=== PATIENT | male | born 1955 | race Caucasian/White ===

== ENCOUNTER 2024-05-29 06:43 | Day surgery (SDC) | payer OTHER ==
[~2024-05-29] VITALS: Ht 185.4 cm; Wt 97.7 kg
[~2024-05-29 06:43] MED LIST: Balanced Salt Epinephrine Irrigation Solution 500 mL IR SCH; Lidocaine HCl/Pf 1% 5 ML VIAL XX SCH; Moxifloxacin HCL 0.5 MG/0.1 ML 0.4MLSYR LEFTEYE SCH; NS 500 ML IV ONE; PHENYLEPHRINE\\TROPICAMIDE\\TETRACAINE OPHTHALMIC DILATING SOLN LEFTEYE PRN; Povidone-Iodine 450 DROP/30 ML Solution LEFTEYE SCH; Triamcinolone Inj Susp 40 MG / ML 1ML Vial INJ SCH
[2024-05-29] MEDS ORDERED: NS 500 ML IV ONE (06:55)
[2024-05-29] MEDS ORDERED: MELO7.5 PO (06:57)
[2024-05-29] MEDS ORDERED: ELIQUIS5 M3 PO (06:57)
[2024-05-29] MEDS ORDERED: ATORVASTATIN CA20 MG PO (06:58)
[2024-05-29] MEDS ORDERED: SOTALOL8011 PO (06:58)
[2024-05-29] MEDS ORDERED: HYDROCODONE-AC1 EA19 PO (06:58)
[2024-05-29] MEDS ORDERED: Pepcid40 MG PO (06:59)
[2024-05-29] MEDS ORDERED: TADA10TA (06:59)
[2024-05-29] MEDS ORDERED: Vitamin D2000 UNIT PO (07:00)
[2024-05-29] MEDS ORDERED: VITAMIN B121000 MCG PO (07:00)
[2024-05-29] MEDS ORDERED: VITAMIN B1250 MG PO (07:01)
[2024-05-29] MEDS ORDERED: Triamcinolone Inj Susp 40 MG / ML 1ML Vial ONE (07:22)
[2024-05-29] MEDS ORDERED: Lidocaine HCl/Pf 1% 5 ML VIAL ONE (07:25)
[2024-05-29] MEDS ORDERED: Midazolam HCl 1MG / ML 2ML Vial ONE (07:26)
[2024-05-29] MEDS ORDERED: FentaNYL Citrate 50 MCG/ML 2 ML Injection ONE (07:26)
[2024-05-29] MEDS ORDERED: Tetracaine HCl 0.5% Opth Soln 15 ml LEFTEYE ONE (08:06)
[2024-05-29 08:27] VITALS: BP 111/88
== END 2024-05-29 08:48 | disposition home or self-care (01) ==
LOC: ORSCSDS 06:43
PROVIDERS: Ophthalmology
PROC: 08RK3JZ Replacement of Left Lens with Synthetic Substitute, Percutaneous Approach (ICD-10-PCS; principal; 2024-05-29 08:00)
DX: E11.36 Type 2 diabetes mellitus with diabetic cataract (principal); H25.813 Combined forms of age-related cataract, bilateral; I48.91 Unspecified atrial fibrillation; K21.9 Gastro-esophageal reflux disease without esophagitis; Z95.0 Presence of cardiac pacemaker; Z79.01 Long term (current) use of anticoagulants; Z79.899 Other long term (current) drug therapy
CPT/HCPCS: 82947; J2001; J2250; J3010; J3301; J7040; V2632

== ENCOUNTER 2024-11-08 22:24 | Emergency (ER) | payer OTHER ==
[~2024-11-08] VITALS: Ht 185.4 cm; Wt 93.0 kg
[~2024-11-08 22:24] MED LIST changes: +ATORVASTATIN CA20 MG PO; -Balanced Salt Epinephrine Irrigation Solution 500 mL IR SCH; +ELIQUIS5 M3 PO; +HYDROCODONE-AC1 EA19 PO; -Lidocaine HCl/Pf 1% 5 ML VIAL XX SCH; +MELO7.5 PO; -Moxifloxacin HCL 0.5 MG/0.1 ML 0.4MLSYR LEFTEYE SCH; -NS 500 ML IV ONE; -PHENYLEPHRINE\\TROPICAMIDE\\TETRACAINE OPHTHALMIC DILATING SOLN LEFTEYE PRN; +Pepcid40 MG PO; -Povidone-Iodine 450 DROP/30 ML Solution LEFTEYE SCH; +SOTALOL8011 PO; +TADA10TA PO; -Triamcinolone Inj Susp 40 MG / ML 1ML Vial INJ SCH; +VITAMIN B121000 MCG PO; +VITAMIN B1250 MG PO; +Vitamin D2000 UNIT PO
[2024-11-08 22:50] LABS: BASOPHILS ABSOLUTE AUTO 0.05 K/mm3 (0.00-0.23); BASOPHILS PERCENT AUTO 1 % (0-2); EOSINOPHILS ABSOLUTE AUTO 0.08 K/mm3 (0.00-0.68); EOSINOPHILS PERCENT AUTO 1 % (0-6); Hematocrit 45.9 % (37.0-53.0); Hemoglobin 15.2 g/dL (13.5-17.5); IMMATURE GRAN ABSOLUTE AUTO 0.01 K/mm3 (0.00-0.10); IMMATURE GRAN PERCENT AUTO 0 % (0-1); LYMPHOCYTES ABSOLUTE AUTO 2.66 K/mm3 (0.84-5.20); LYMPHOCYTES PERCENT AUTO 38 % (21-46); MONOCYTES ABSOLUTE AUTO 0.62 K/mm3 (0.16-1.47); MONOCYTES PERCENT AUTO 9 % (4-13); Mean Corpuscular HGB 30.6 pg (26.0-34.0); Mean Corpuscular HGB Conc 33.1 g/dL (31.5-36.5); Mean Corpuscular Volume 93 fL (80-100); Mean Platelet Volume 10.8 fL (9.1-12.4); NEUTROPHILS ABSOLUTE AUTO 3.67 K/mm3 (1.96-9.15); NEUTROPHILS PERCENT AUTO 52 % (41-73); Platelet Count 167 K/mm3 (150-400); RDW Coefficient Variation 12.9 % (11.7-14.2); Red Blood Cell Count 4.96 M/mm3 (4.30-5.90); White Blood Cell Count 7.09 K/mm3 (4.00-11.30)
[2024-11-08 23:05] LABS: International Normalized Ratio 1.06; Prothrombin Time Results 11.3 Sec (9.7-11.5)
[2024-11-08 23:11] LABS: Albumin, Blood 3.3 g/dL (3.4-5.0); Bilirubin, Total 0.3 mg/dL (0.1-1.0); Creatinine, Blood 0.7 mg/dL (0.60-1.20); Globulin, Blood 3.4 g/dL (2.2-4.0); Magnesium, Blood 2.1 mg/dL (1.6-2.4); Potassium, Blood 3.8 mmol/L (3.5-5.5); Total Protein, Blood 6.7 g/dL (6.4-8.2)
[2024-11-08] MEDS ORDERED: Digoxin 0.25 MG/ML 2ML Amp IV ONE (23:15)
[2024-11-08] MEDS ORDERED: Metoprolol Tartrate 1 MG/ML 5 ML VIAL IV PRN (23:20)
[2024-11-09] MEDS ORDERED: Diltiazem HCl 5 MG / ML 5ML Vial IV ONE (00:45)
[2024-11-09 01:00] VITALS: BP 104/88
[2024-11-10] MEDS ORDERED: AREDS EYE VITAMINS (11:18)
== END 2024-11-09 01:45 | disposition home or self-care (01) ==
LOC: ER 22:24
PROVIDERS: Emergency Medicine
DX: I48.92 Unspecified atrial flutter (principal); Z79.899 Other long term (current) drug therapy; Z88.5 Allergy status to narcotic agent
CPT/HCPCS: 71046; 80053; 83735; 83880; 84484; 85025; 85610; 93005; 93010; 96374; 96375; 99285-25; J1160

== ENCOUNTER 2024-11-09 23:00 | Inpatient (IN) | payer OTHER ==
[~2024-11-09] VITALS: Ht 185.4 cm; Wt 94.4 kg
[2024-11-09 23:44] LABS: BASOPHILS ABSOLUTE AUTO 0.05 K/mm3 (0.00-0.23); BASOPHILS PERCENT AUTO 1 % (0-2); EOSINOPHILS ABSOLUTE AUTO 0.08 K/mm3 (0.00-0.68); EOSINOPHILS PERCENT AUTO 1 % (0-6); Hematocrit 45.2 % (37.0-53.0); Hemoglobin 14.9 g/dL (13.5-17.5); IMMATURE GRAN ABSOLUTE AUTO 0.02 K/mm3 (0.00-0.10); IMMATURE GRAN PERCENT AUTO 0 % (0-1); LYMPHOCYTES ABSOLUTE AUTO 2.22 K/mm3 (0.84-5.20); LYMPHOCYTES PERCENT AUTO 28 % (21-46); MONOCYTES PERCENT AUTO 9 % (4-13); Mean Corpuscular HGB 30.5 pg (26.0-34.0); Mean Corpuscular Volume 93 fL (80-100); Mean Platelet Volume 10.5 fL (9.1-12.4); NEUTROPHILS ABSOLUTE AUTO 4.78 K/mm3 (1.96-9.15); NEUTROPHILS PERCENT AUTO 61 % (41-73); Platelet Count 148 K/mm3 (150-400); RDW Coefficient Variation 12.8 % (11.7-14.2); RDW Standard Deviation 43.7 fL (35.1-46.3); Red Blood Cell Count 4.88 M/mm3 (4.30-5.90); White Blood Cell Count 7.85 K/mm3 (4.00-11.30)
[2024-11-10 00:03] LABS: Albumin, Blood 3.2 g/dL (3.4-5.0); Albumin/Globulin Ratio 0.9 (0.8-1.8); Bilirubin, Total 0.5 mg/dL (0.1-1.0); Bun/Creatinine Ratio 24.7 (12.0-20.0); Calcium, Blood 9.1 mg/dL (8.5-10.1); Creatinine, Blood 0.69 mg/dL (0.60-1.20); Globulin, Blood 3.4 g/dL (2.2-4.0); Potassium, Blood 4.1 mmol/L (3.5-5.5); Total Protein, Blood 6.6 g/dL (6.4-8.2)
[2024-11-10] MEDS ORDERED: Metoprolol Tartrate 1 MG/ML 5 ML VIAL IV ONE ×2 (03:15→04:30)
[2024-11-10] MEDS ORDERED: NS 1,000 ML IV SCH (04:30)
[2024-11-10] MEDS ORDERED: Diltiazem HCl 5 MG / ML 5ML Vial IV ONE (05:00)
[2024-11-10] MEDS ORDERED: NS 1,000 ML IV ONE (05:50)
[2024-11-10] MEDS ORDERED: Ondansetron HCl 2 MG / ML 2ML Vial IV PRN (05:50)
[2024-11-10] MEDS ORDERED: FLU VACC TS2024-25(6MOS UP)/PF 45 MCG/0.5 ML SYRINGE IM ONE (05:50)
[2024-11-10 06:59] LABS: Source, Urine Clean Catch
[2024-11-10 07:01] LABS: Bilirubin, Urine Neg (Neg); Blood, Urine 1+ (Neg); Glucose Qualitative, Urine Neg (Neg); Ketones, Urine Neg (Neg); Leukocyte Esterase, Urine Neg (Neg); Nitrite, Urine Neg (Neg); Protein, Urine Neg (Neg); Specific Gravity, Urine 1.015 (1.003-1.022); Urobilinogen, Urine NORM (Normal)
[2024-11-10 07:22] LABS: Appearance, Urine Clear (Clear); Color, Urine Yellow (P-Yellow)
[2024-11-10 07:24] LABS: White Blood Cells, Urine 0-2 /hpf (0-5)
[2024-11-10 07:25] LABS: Bacteria Rare /hpf; Squamous Epithelial Cells Rare /hpf (Few)
[2024-11-10] MEDS ORDERED: Enoxaparin 40 MG/0.4 ML SYR SC SCH (09:00)
[2024-11-10] MEDS ORDERED: AREDS EYE VITAMINS (11:18)
[2024-11-10 13:35] LABS: Free Thyroxine 0.94 ng/dL (0.70-1.60)
[2024-11-10 13:37] LABS: Thyroid Stimulating Hormone 1.6 uIU/mL (0.360-4.800)
[2024-11-10] MEDS ORDERED: Metoprolol Tartrate 1 MG/ML 5 ML VIAL IV PRN (16:10)
[2024-11-10 16:54] VITALS: BP 100/89
[2024-11-10 19:35] VITALS: BP 116/85
[2024-11-10 20:57] VITALS: BP 101/61
[2024-11-10 22:45] VITALS: BP 133/114
[2024-11-10 23:30] VITALS: BP 117/94
[2024-11-10] MEDS ORDERED: Acetaminophen 325 MG TABLET PO PRN (23:45)
[2024-11-11] VITALS (14 sets, daily range): BP systolic 101–129; BP diastolic 74–104
[2024-11-11 04:01] LABS: BASOPHILS ABSOLUTE AUTO 0.05 K/mm3 (0.00-0.23); BASOPHILS PERCENT AUTO 1 % (0-2); EOSINOPHILS ABSOLUTE AUTO 0.08 K/mm3 (0.00-0.68); EOSINOPHILS PERCENT AUTO 1 % (0-6); Hematocrit 43.2 % (37.0-53.0); Hemoglobin 14.6 g/dL (13.5-17.5); IMMATURE GRAN ABSOLUTE AUTO 0.02 K/mm3 (0.00-0.10); IMMATURE GRAN PERCENT AUTO 0 % (0-1); LYMPHOCYTES ABSOLUTE AUTO 2.01 K/mm3 (0.84-5.20); LYMPHOCYTES PERCENT AUTO 30 % (21-46); MONOCYTES ABSOLUTE AUTO 0.65 K/mm3 (0.16-1.47); MONOCYTES PERCENT AUTO 10 % (4-13); Mean Corpuscular HGB 30.9 pg (26.0-34.0); Mean Corpuscular HGB Conc 33.8 g/dL (31.5-36.5); Mean Corpuscular Volume 91 fL (80-100); Mean Platelet Volume 10.9 fL (9.1-12.4); NEUTROPHILS PERCENT AUTO 59 % (41-73); Platelet Count 141 K/mm3 (150-400); RDW Coefficient Variation 12.9 % (11.7-14.2); RDW Standard Deviation 43.5 fL (35.1-46.3); Red Blood Cell Count 4.73 M/mm3 (4.30-5.90); White Blood Cell Count 6.81 K/mm3 (4.00-11.30)
[2024-11-11 04:25] LABS: Albumin/Globulin Ratio 0.9 (0.8-1.8); Bilirubin, Total 0.6 mg/dL (0.1-1.0); Bun/Creatinine Ratio 18.3 (12.0-20.0); Calcium, Blood 8.9 mg/dL (8.5-10.1); Creatinine, Blood 0.65 mg/dL (0.60-1.20); Globulin, Blood 3.3 g/dL (2.2-4.0); Total Protein, Blood 6.3 g/dL (6.4-8.2)
[2024-11-12] MEDS ORDERED: Hyaluronidase 150 UNIT/ML Vial IV SCH (00:38)
[2024-11-12] MEDS ORDERED: Hyaluronidase 150 UNIT/ML Vial SC SCH (01:00)
[2024-11-12 04:00] VITALS: BP 117/85
[2024-11-12 04:34] LABS: Hematocrit 41.4 % (37.0-53.0); Mean Corpuscular HGB 30.4 pg (26.0-34.0); Mean Corpuscular HGB Conc 33.8 g/dL (31.5-36.5); Mean Corpuscular Volume 90 fL (80-100); Platelet Count 148 K/mm3 (150-400); RDW Coefficient Variation 13.1 % (11.7-14.2); RDW Standard Deviation 42.8 fL (35.1-46.3); White Blood Cell Count 7.27 K/mm3 (4.00-11.30)
[2024-11-12 08:00] VITALS: BP 108/89
[2024-11-12] MEDS ORDERED: Amiodarone HCl 200 MG Tab PO ONE (11:00)
[2024-11-12 12:58] VITALS: BP 114/91
[2024-11-12 16:46] VITALS: BP 117/92
[2024-11-12 20:07] VITALS: BP 129/88
[2024-11-12] MEDS ORDERED: Amiodarone HCl 200 MG Tab PO SCH (21:00)
[2024-11-13] VITALS: BP 106/85
[2024-11-13 03:49] VITALS: BP 103/88
[2024-11-13 08:39] VITALS: BP 110/91
[2024-11-13] MEDS ORDERED: dilTIAZem HCL 30 MG TAB PO SCH (09:30)
[2024-11-13] MEDS ORDERED: dilTIAZem HCL 60 MG TAB PO SCH ×2 (12:00→13:30)
[2024-11-13 12:03] VITALS: BP 113/90
[2024-11-13 16:23] VITALS: BP 123/89
[2024-11-13 21:02] VITALS: BP 117/83
[2024-11-14 00:08] VITALS: BP 102/81
[2024-11-14 04:26] VITALS: BP 106/83
[2024-11-14 04:39] LABS: BASOPHILS ABSOLUTE AUTO 0.04 K/mm3 (0.00-0.23); BASOPHILS PERCENT AUTO 1 % (0-2); EOSINOPHILS ABSOLUTE AUTO 0.07 K/mm3 (0.00-0.68); EOSINOPHILS PERCENT AUTO 1 % (0-6); Hematocrit 43.4 % (37.0-53.0); Hemoglobin 14.7 g/dL (13.5-17.5); IMMATURE GRAN ABSOLUTE AUTO 0.02 K/mm3 (0.00-0.10); IMMATURE GRAN PERCENT AUTO 0 % (0-1); LYMPHOCYTES ABSOLUTE AUTO 1.67 K/mm3 (0.84-5.20); LYMPHOCYTES PERCENT AUTO 25 % (21-46); MONOCYTES ABSOLUTE AUTO 0.64 K/mm3 (0.16-1.47); MONOCYTES PERCENT AUTO 9 % (4-13); Mean Corpuscular HGB 30.8 pg (26.0-34.0); Mean Corpuscular HGB Conc 33.9 g/dL (31.5-36.5); Mean Corpuscular Volume 91 fL (80-100); Mean Platelet Volume 10.7 fL (9.1-12.4); NEUTROPHILS ABSOLUTE AUTO 4.36 K/mm3 (1.96-9.15); NEUTROPHILS PERCENT AUTO 64 % (41-73); Platelet Count 149 K/mm3 (150-400); RDW Coefficient Variation 13.1 % (11.7-14.2); RDW Standard Deviation 43.3 fL (35.1-46.3); Red Blood Cell Count 4.77 M/mm3 (4.30-5.90)
[2024-11-14 04:59] LABS: Magnesium, Blood 1.9 mg/dL (1.6-2.4)
[2024-11-14 05:02] LABS: Albumin, Blood 3.2 g/dL (3.4-5.0); Albumin/Globulin Ratio 0.8 (0.8-1.8); Bilirubin, Total 0.7 mg/dL (0.1-1.0); Bun/Creatinine Ratio 26.7 (12.0-20.0); Calcium, Blood 9.1 mg/dL (8.5-10.1); Creatinine, Blood 0.56 mg/dL (0.60-1.20); Globulin, Blood 3.9 g/dL (2.2-4.0); Phosphorus, Blood 3.2 mg/dL (2.5-4.9); Potassium, Blood 3.8 mmol/L (3.5-5.5); Total Protein, Blood 7.1 g/dL (6.4-8.2)
[2024-11-14 08:31] VITALS: BP 106/85
[2024-11-14] MEDS ORDERED: dilTIAZem HCL 60 MG TAB PO SCH ×2 (09:00)
[2024-11-14 11:39] VITALS: BP 105/82
[2024-11-14 15:56] VITALS: BP 116/81
[2024-11-14 20:11] VITALS: BP 115/83
[2024-11-15] VITALS (11 sets, daily range): BP systolic 107–126; BP diastolic 71–89
[2024-11-15 03:52] LABS: BASOPHILS ABSOLUTE AUTO 0.03 K/mm3 (0.00-0.23); BASOPHILS PERCENT AUTO 1 % (0-2); EOSINOPHILS ABSOLUTE AUTO 0.06 K/mm3 (0.00-0.68); EOSINOPHILS PERCENT AUTO 1 % (0-6); Hematocrit 41.6 % (37.0-53.0); IMMATURE GRAN ABSOLUTE AUTO 0.02 K/mm3 (0.00-0.10); IMMATURE GRAN PERCENT AUTO 0 % (0-1); LYMPHOCYTES ABSOLUTE AUTO 1.51 K/mm3 (0.84-5.20); LYMPHOCYTES PERCENT AUTO 23 % (21-46); MONOCYTES ABSOLUTE AUTO 0.68 K/mm3 (0.16-1.47); MONOCYTES PERCENT AUTO 10 % (4-13); Mean Corpuscular HGB 30.6 pg (26.0-34.0); Mean Corpuscular HGB Conc 33.7 g/dL (31.5-36.5); Mean Corpuscular Volume 91 fL (80-100); Mean Platelet Volume 10.8 fL (9.1-12.4); NEUTROPHILS ABSOLUTE AUTO 4.34 K/mm3 (1.96-9.15); NEUTROPHILS PERCENT AUTO 65 % (41-73); Platelet Count 144 K/mm3 (150-400); RDW Coefficient Variation 13.1 % (11.7-14.2); RDW Standard Deviation 43.3 fL (35.1-46.3); Red Blood Cell Count 4.58 M/mm3 (4.30-5.90); White Blood Cell Count 6.64 K/mm3 (4.00-11.30)
[2024-11-15 04:31] LABS: Albumin, Blood 3.1 g/dL (3.4-5.0); Albumin/Globulin Ratio 0.9 (0.8-1.8); Bilirubin, Total 0.4 mg/dL (0.1-1.0); Bun/Creatinine Ratio 22.6 (12.0-20.0); Calcium, Blood 9.1 mg/dL (8.5-10.1); Creatinine, Blood 0.62 mg/dL (0.60-1.20); Globulin, Blood 3.6 g/dL (2.2-4.0); Potassium, Blood 3.7 mmol/L (3.5-5.5); Total Protein, Blood 6.7 g/dL (6.4-8.2)
[2024-11-15] MEDS ORDERED: propofoL 50 ML IV ONE (08:33)
[2024-11-15] MEDS ORDERED: NS 1,000 ML IV ONE (08:51)
[2024-11-15] MEDS ORDERED: dilTIAZem HCL 30 MG TAB PO ONE (09:00)
[2024-11-15] MEDS ORDERED: dilTIAZem HCL 120 MG CAP.CD PO SCH (12:00)
[2024-11-15] MEDS ORDERED: AMIODARONE HCL400 M2 PO (12:48)
[2024-11-15] MEDS ORDERED: Amiodarone HCl200 MG PO (12:49)
== END 2024-11-15 14:15 | disposition home or self-care (01) | DRG 310 ==
LOC: ER 23:00 → ERHOLD 23:01 → PCU 11-10 16:53
PROVIDERS: Family Medicine; Student in an Organized Health Care Education/Training Program; ADMIT Internal Medicine
PROC: 5A2204Z Restoration of Cardiac Rhythm, Single (ICD-10-PCS; principal; 2024-11-15)
DX: I48.92 Unspecified atrial flutter (principal); D69.6 Thrombocytopenia, unspecified; E88.09 Other disorders of plasma-protein metabolism, not elsewhere classified; I48.91 Unspecified atrial fibrillation; E78.5 Hyperlipidemia, unspecified; K21.9 Gastro-esophageal reflux disease without esophagitis; Z96.651 Presence of right artificial knee joint; Z88.5 Allergy status to narcotic agent; Z79.01 Long term (current) use of anticoagulants; Z79.899 Other long term (current) drug therapy; Z95.0 Presence of cardiac pacemaker; Z90.49 Acquired absence of other specified parts of digestive tract
CPT/HCPCS: 36415; 80053; 81001; 83735; 84100; 84439; 84443; 84484; 85025; 85027; 92960; 93005; 93010; 96361; 96365; 96366; 96372; 96372-59; 96375; 96376; 99285-25; A9270; G0378; J0282; J1650; J2704; J3470; J7030; J7060

== ENCOUNTER → 2024-11-23 | Outpatient (CLI) | payer OTHER ==
[~2024-11-23] MED LIST changes: +AMIODARONE HCL400 M2 PO; +AREDS EYE VITAMINS; +Amiodarone HCl200 MG PO
[2024-11-25 18:53] LABS: Adenovirus F 40/41 Not Detected (NOT DETECT); Astrovirus Not Detected (NOT DETECT); Campylobacter Sp Not Detected (NOT DETECT); Cryptosporidium Not Detected (NOT DETECT); Cyclospora Cayetanensis Not Detected (NOT DETECT); E. Coli O157 Not Detected (NOT DETECT); Entamoeba Histolytica Not Detected (NOT DETECT); Enteroaggregative E. coli-EAEC Not Detected (NOT DETECT); Enteropathogenic E. coli-EPEC Not Detected (NOT DETECT); Enterotoxigenic E. coli-ETEC Not Detected (NOT DETECT); Giardia Lamblia Not Detected (NOT DETECT); Norovirus GI/GII Not Detected (NOT DETECT); Plesiomonas Shigelloides Not Detected (NOT DETECT); Rotavirus A Not Detected (NOT DETECT); Salmonella Sp Not Detected (NOT DETECT); Sapovirus Not Detected (NOT DETECT); Shiga Toxin-prod E. coli-STEC Not Detected (NOT DETECT); Shigella/Enteroin E. coli-EIEC Not Detected (NOT DETECT); Vibrio Cholerae Not Detected (NOT DETECT); Vibrio Sp Not Detected (NOT DETECT); Yersinia Enterocolitica Not Detected (NOT DETECT)
== END ==
LOC: LAB SHORT 04:00 → LAB 04:00
PROVIDERS: Physician Assistant
DX: B34.9 Viral infection, unspecified (principal)
CPT/HCPCS: 87507

== ENCOUNTER → 2025-10-27 | Outpatient (CLI) | payer OTHER ==
[2025-10-27 12:19] LABS: Hematocrit 47.1 % (37.0-53.0); Hemoglobin 15.3 g/dL (13.5-17.5); Mean Corpuscular HGB Conc 32.5 g/dL (31.5-36.5); Mean Corpuscular Volume 95 fL (80-100); NRBC ABSOLUTE 0.00 K/mm3 (0.00-0.02); NRBC Auto 0.0 /100 WBC (0.0-0.2); Platelet Count 143 K/mm3 (150-400); RDW Coefficient Variation 13.1 % (11.7-14.2); RDW Standard Deviation 45.4 fL (35.1-46.3)
[2025-10-27 12:29] LABS: Alanine Aminotransfer (ALT/SGP 48 U/L (12-78); Albumin, Blood 4.0 g/dL (3.4-5.0); Albumin/Globulin Ratio 1.2 (0.8-1.8); Anion Gap 6 mmol/L (3-11); Aspartate Aminotrans (AST/SGOT 32 U/L (12-37); Bilirubin, Total 0.9 mg/dL (0.1-1.0); Blood Urea Nitrogen 18 mg/dL (8-24); CHOL/HDL RATIO 3.0; CO2, Blood 28 mmol/L (21-32); Calcium, Blood 9.0 mg/dL (8.5-10.1); Chloride, Blood 106 mmol/L (98-108); Cholesterol 117 mg/dL (50-200); Creatinine, Blood 0.65 mg/dL (0.60-1.20); Globulin, Blood 3.4 g/dL (2.2-4.0); Glucose, Blood 144 mg/dL (70-99); HDL Cholesterol 39 mg/dL (>39); LDL/HDL RATIO 1.2; Low Density Lipoprotein Chol 47 mg/dL (0-110); Potassium, Blood 4.3 mmol/L (3.5-5.5); Prostate Specific Antigen 1.470 ng/mL (0.000-4.000); Sodium, Blood 136 mmol/L (136-145); Total Protein, Blood 7.4 g/dL (6.4-8.2); Triglycerides 154 mg/dL (30-160); Very Low Density Lipoprot Chol 30 mg/dL (6-32)
[2025-10-27 14:58] LABS: Creatinine, Urine Random 144.0 mg/dL (27.00-270.00); Microalb/Creat Ratio UR, Rand 10.625 mg/g (0.000-30.000); Microalbumin, Random Urine 15.3 mg/L (0.000-20.000)
== END ==
LOC: LAB SHORT 10:54 → LAB 10:54
PROVIDERS: Family Medicine
DX: E11.9 Type 2 diabetes mellitus without complications (principal); E78.2 Mixed hyperlipidemia; Z12.5 Encounter for screening for malignant neoplasm of prostate
CPT/HCPCS: 80053; 80061; 82043; 82570; 85027; G0103